=== PATIENT | female | born 1990 | race Two or more races ===

== ENCOUNTER 2023-08-30 16:44 | Emergency (ER) | payer MEDICAID, OTHER ==
[~2023-08-30] VITALS: Ht 165.1 cm; Wt 84.6 kg
[2023-08-30] MEDS ORDERED: CHL10C PO ×2 (18:42→20:36)
[2023-08-30] MEDS ORDERED: CHL25C GT (19:00)
[2023-08-30 19:40] VITALS: BP 121/76; PULSE 84; RESP 17; TEMP 98.2; O2SAT 98
== END 2023-08-30 19:43 | disposition home or self-care (01) ==
LOC: ER 16:44
DX: F41.9 Anxiety disorder, unspecified (principal); F41.0 Panic disorder [episodic paroxysmal anxiety]; F10.20 Alcohol dependence, uncomplicated; Y90.8 Blood alcohol level of 240 mg/100 ml or more
CPT/HCPCS: 93005